=== PATIENT | female | born 1995 ===

== ENCOUNTER → 2016-12-13 | Day surgery (SDC) | payer OTHER ==
--- NOTE | 2016-12-12 20:53 | Pre-Procedure Note/Attestation ---
Pre-Procedure Note/Attestation Complete Prior to Procedure Planned Procedure: bilateral Procedure Narrative: 1. Bilateral endoscopic sinus surgery 2. Septoplasty 3. Bilateral submucous resection inferior turbinates Indications for Procedure Pre-Operative Diagnosis: 1. Chronic sinusitis-blocked OMUs 2. Septal deviation 3. Hypertrophied inferior turbinates Attestation I attest that I discussed the nature of the procedure; its benefits; risks and complications; and alternatives (and the risks and benefits of such alternatives ), prior to the procedure, with the patient (or the patient's legal passenger representative). I attest that, if there was a reasonable possibility of needing a blood transfusion, the patient (or the patient's legal passenger representative) was given the [place] Department [facility] [employer] [facility] standardized written summary, pursuant to the Hernando Pilar Blood Safety Act ([place] Health and Safety Code # 1645, as amended). I attest that I re-evaluated the patient just prior to the surgery and that there has been no change in the patient's H&P, job # [id number] LYNNE CORONADO Dec 12, 2016 20:53
[~2016-12-13] VITALS: Ht 162.6 cm; Wt 54.0 kg
[2016-12-13] VITALS (9 sets, daily range): BP systolic 120–140; BP diastolic 80–95
[~2016-12-13] MED LIST: ARNICA PO; Bupivacaine w/Epi 0.5% 30ml Vial INJ ONE; Cocaine 4% Vial TOPIC ONE; Dexamethasone 4mg/ml vial IVP ONE; Dexamethasone 4mg/ml vial ONE; DiphenhydrAMINE 50mg/ml Inj IVP PRN; HYDROmorphone 1mg/ml Carpuject SUBQ PRN; Hydromorphone 0.5mg/0.5ml inj IVP PRN; LR 1000ml 1,000 ML IVLG SCH; LR 1000ml ONE; Labetalol 5mg/ml 20ml vial IV PRN; Lidocaine 1% 10mg/ml/Epi 0.005mg/ml 30ml vial INJ ONE; Metoclopramide 10mg/2ml Inj IVP PRN; Metoclopramide 10mg/2ml Inj ONE; Midazolam 2mg/2ml Inj ONE; Muri-Lube ONE; NS Irrig 1000ml ONE; Norco 5mg/325mg tab ORAL PRN; Propofol 10mg/ml 20ml IV ONE; Saline Nasal Gel (Ayr) NASAL ONE; Sterile Water Irrig 1000ml IRRIG ONE; fentaNYL 100 mcg/2 mL IV ONE; fentaNYL 100 mcg/2 mL IV PRN
--- NOTE | 2016-12-13 04:38 | Pre-op HX & Phy Repo 2 SIG ---
DATE OF ADMISSION: 12/13/2016 INDICATION: The patient is a 21-year-old female who is having surgery for chronic sinusitis notable on CT scan blocked ostiomeatal unit bilaterally. She has been on many antibiotics, nasal steroids, and antihistamines without resolution. PAST MEDICAL HISTORY: Significant for nausea, cough, asthma, allergic rhinitis, recurrent chronic sinusitis. SOCIAL HISTORY: Single no children. She is a student at [employer]. Denies alcohol or drugs. FAMILY HISTORY: Cholesterol. PHYSICAL EXAMINATION: VITAL SIGNS: The patient is 5 feet 4 inches and 121 pounds. Blood pressure 120/80, pulse 68, respiratory rate 12, and BMI 20.77. HEENT: Head normocephalic. Eyes, PERRLA. EOMI. Lips, tongue, pharynx and neck normal. No septal deviation or hypertrophied turbinates. ABDOMEN: Soft and nontender. Normoactive bowel sounds. BREASTS: Not done it is not indicated for the surgery and is followed elsewhere. GENITOURINARY: Not done it is not indicated for the surgery and is followed elsewhere. NEUROLOGIC: Not done it is not indicated for the surgery and is followed elsewhere. EXTREMITIES: Normal. ALLERGIES: She has no known drug allergies. PAST SURGICAL HISTORY: [place] teeth without complications. MEDICATIONS: Amoxicillin, Astelin, Rhinocort, [place] for postop, and Dulera. LABORATORY AND DIAGNOSTIC DATA: CT scan indicates as noted above. ASSESSMENT: Chronic sinusitis candidate for septoplasty left inferior turbinates and this is bilateral endoscopic sinus surgery. PLAN: Plan has been discussed with the patient. She has been given printed instructions in my office as well as medications, amoxicillin and [place] that she was already on prior to surgery. She has signed consents in my office for my part . Thank you very much for asking my opinion in the care and treatment of this patient. Tristin Byrd M.D. DR: Trent JOB#: [id number] CC: SAVANNAH
--- NOTE | 2016-12-13 07:18 | Anethesia Preoperative Eval ---
Anesthesia Pre-op PMH/ROS General Date of Evaluation: Dec 13, 2016 Anesthesiologist: Eduar ASA Score: ASA 2 Mallampati Score Class I : Soft palate, uvula, fauces, pillars visible Class II: Soft palate, uvula, fauces visible Class III: Soft palate, base of uvula visible Class IV: Only hard plate visible Mallampati Classification: Class I Surgeon: Rochelle Diagnosis: Deviated septum, chronic sinusitis Surgical Procedure: SEptoplasty, SMR TURBS, endoscopic sinus sx Anesthesia History: none Family History: no anesthesia problems Allergies: Coded Allergies: No Known Allergies (Unverified , 12/12/16) Medications: see eMAR Past Medical History Cardiovascular: Denies: CAD, HTN, VT, arrhythmia, other, valve dz Pulmonary: Reports: asthma - as per patient, PFTs with evidence of decreasaed FEV1/FVC-about 70%, Denies: COPD, GIANNA, other Gastrointestinal/Genitourinary: Denies: CRI, ESRD, GERD, other Neurologic/Psychiatric: Denies: CVA, TIA, dementia, depression/anxiety, other Endocrine: Denies: DM, hypothyroidism, other, steroids HEENT: Reports: other - deviated septum with chronic sinusitis and post nasal drip, Denies: FALSE PASS (L), FALSE PASS (R), cataract (L), cataract (R), glaucoma Hematology/Immune: Denies: DVT, anemia, bleeding disorder, other Musculoskeletal/Integumentary: Denies: DDD, DJD, OA, RA, edema, other PSxH Narrative: Denies Anesthesia Pre-op Phys. Exam Physician Exam Last Vital Signs Date Time Temp Pulse Resp B/P Pulse Ox O2 Delivery O2 Flow Rate FiO2 12/13/16 06:20 97.9 92 20 128/80 99 Room Air Constitutional: NAD Cardiovascular: RRR Respiratory: CTA Airway Exam Mallampati Score: Class II MO: full ROM: full Anesthesia Pre-op A/P Labs see chart Urine Test Test 12/13/16 06:00 Urine HCG, Qualitative Negative Risk Assessment & Plan Assessment: ASA II Plan: GA Status Change Before Surgery: No Pre-Antibiotics Drug: Ancef 1g Given Within 1 Hr of Incision: Yes NICHELLE CADET M.D. Dec 13, 2016 07:18
--- NOTE | 2016-12-13 08:05 | Immediate Post-Op Evaluation ---
Immediate Post-Op Evalulation Immediate Post-Op Evalulation Procedure: Septoplasty, SMR TURBs, endoscopic sinus sx Date of Evaluation: Dec 13, 2016 Time of Evaluation: 08:44 IV Fluids: 1L Blood Products: 0 Estimated Blood Loss: 50 Urinary Output: 0 Blood Pressure Systolic: 124 Blood Pressure Diastolic: 69 Pulse Rate: 132 Respiratory Rate: 18 O2 Sat by Pulse Oximetry: 100 Temperature (Fahrenheit): 98.2 Pain Score (1-10): 0 Nausea: No Vomiting: No Complications 0 Patient Status: awake, reacts, patent, none Hydration Status: adequate Drug: Ancef 1g Given Within 1 Hr of Incision: Yes Time Given: 07:55 NICHELLE CADET M.D. Dec 13, 2016 08:05
--- NOTE | 2016-12-13 08:05 | 48 Hour Post Anesthesia Eval ---
Post Anesthesia Evaluation Procedure: Septoplasty, SMR TURBs, endoscopic sinus sx Date of Evaluation: Dec 13, 2016 Blood Pressure Systolic: 128 0: 74 Pulse Rate: 110 Respiratory Rate: 18 O2 Sat by Pulse Oximetry: 100 Airway: patent Nausea: No Vomiting: No Pain Intensity: 0 Hydration Status: adequate Cardiopulmonary Status: at baseline Mental Status/LOC: patient returned to baseline Post-Anesthesia Complications: 0 Follow-up care needed: ready to discharge NICHELLE CADET M.D. Dec 13, 2016 08:05
--- NOTE | 2016-12-13 08:37 | Brief Operative Note ---
Immediate Post Operative Note Operative Note Chief Complaint: Chroinc sinusitis, nasal airway obstruction Pre-op Diagnosis: 1. Chronic sinusitis-blocked OMUs 2. Septal deviation 3. Hypertrophied inferior turbinates Procedure: 1. Bilateral endoscopic sinus surgery 2. Septoplasty 3. Bilateral SMR inf. turbinates Post-op Diagnosis: same as pre-op Surgeon: Berenice Coronado Glass Block Bender: none Additional Surgeons: none Anesthesia: general Specimen: yes - 1. right max. sinus, 2 left max. sinus, 3. Complications: none Condition: stable Estimated Blood Loss: volume - 100cc Drains: none Packing: Stamberger nasal gel Implant(s) used?: No LYNNE CORONADO Dec 13, 2016 08:37
--- NOTE | 2016-12-13 08:43 | Discharge Instructions ---
Discharge Instructions Discharge Instructions Follow up with: Dr. Coronado next week-pt has appt. already Diet: regular Resume Normal Activity?: No Activity: light activity Pneumonia Vaccine: pt refused vaccine Influenza Vaccine (Jun to Nov): pt refused vaccine Follow Up Orders pt has printed instructions reviewed and given to pt in my office last week Return to Work/School on: January 24, 2017 Special Instructions ice to face x 48 hours For Surgical Patients Dressing Care: may change Contact your physician for: bleeding, pain, redness, swelling, yellowish discharge in the op. site For Congestive Heart Failure Reminder Report to your physician any weight gain of 5 pounds or more in one week. LYNNE CORONADO Dec 13, 2016 08:43
--- NOTE | 2016-12-13 10:38 | Operative Note - Dictated ---
DATE OF OPERATION: 12/13/2016 SURGEON: Tristin Byrd M.D. BROOMCORN GRADER: None. ANESTHESIOLOGIST: Dr. Chamorro. Anesthesia: LMA general anesthesia as well as 10 mL 1% lidocaine without epinephrine with Marcaine 0.5% with 1:200,000 epinephrine in 50:50 mixture. Additionally, 4 mL of 4% topical cocaine were placed on nasal pledgets bilaterally, 2 on either nostril. These were accounted for at the end of the case. INDICATION FOR SURGERY: The patient with recurrent sinusitis, who has been refractory to nasal steroids, antihistamines, allergy tests. Allergy desensitization was not successful and she has been on numerous rounds of antibiotics. CT scan indicated chronic sinus disease as well as blocked ostiomeatal units consistent with her symptoms. She also has septal deviation and hypertrophied turbinates on exam. PREOPERATIVE DIAGNOSES: The patient with recurrent sinusitis, who has been refractory to nasal steroids, antihistamines, allergy tests. Allergy desensitization was not successful and she has been on numerous rounds of antibiotics. CT scan indicated chronic sinus disease as well as blocked ostiomeatal units consistent with her symptoms. She also has septal deviation and hypertrophied turbinates on exam. POSTOPERATIVE DIAGNOSES: The patient with recurrent sinusitis, who has been refractory to nasal steroids, antihistamines, allergy tests. Allergy desensitization was not successful and she has been on numerous rounds of antibiotics. CT scan indicated chronic sinus disease as well as blocked ostiomeatal units consistent with her symptoms. She also has septal deviation and hypertrophied turbinates on exam. FINDINGS: The patient with recurrent sinusitis, who has been refractory to nasal steroids, antihistamines, allergy tests. Allergy desensitization was not successful and she has been on numerous rounds of antibiotics. CT scan indicated chronic sinus disease as well as blocked ostiomeatal units consistent with her symptoms. She also has septal deviation and hypertrophied turbinates on exam. Please note deviation was off to her left of her septum. PROCEDURES: 1. Bilateral endoscopic sinus disease. 2. Septoplasty. 3. Submucous resection, left inferior turbinate. 4. Submucous resection, right inferior turbinate. TECHNIQUE: The patient was prepped and draped in usual manner. Time-out was performed and all agreed as the equipment and procedures to be done. I then proceeded to inject the aforementioned lidocaine, Marcaine, and epinephrine mixture and place the 4 nasal pledgets with 4 mL of 4% topical cocaine. I then proceeded to remove the pledget on the left side making Alberto incision with a #15 blade in the septum. This was elevated with a dental elevator subperichondrially without difficulty. I then removed the lower 4 mm of the septum and fractured in the vomer. I used scissors to make an incision in the inferior part of the septum and then removed with a straight Gloria. I then closed this with a 4-0 plain suture. I then addressed the inferior turbinates. A small incision was made with #15 blade and then utilizing radiofrequency wand covered with saline with each stick, 2 sticks in either inferior turbinate for a count of 10 seconds at a setting of 6. They then were outfractured with a Downing elevator. I then used a rats tail to open up the nasal antral window underneath the inferior turbinate on either side and used the dental elevator to medialize the middle turbinate so as to have better vantage point of the ostiomeatal unit on the right and left. Starting on the right side, I cleaned out the right maxillary sinus with a Fede under endoscopic vision with a 30-degree scope and some with zero-scope. I then utilized a side biter and opened up the ostiomeatal unit on the right side. This was suctioned clean of further disease with same. Please note that aerobic and anaerobic culture was taken from the right maxillary sinus as well as a pathological specimen sent for evaluation. I then turned my attention to the left ostiomeatal unit. Rats tail was then utilized to open up the nasal antral window below the inferior turbinate and above the inferior turbinate. The middle turbinate was medialized with a dental elevator. I then identified the ostiomeatal unit and opened this up with a side biter. I was then able to with the scope through the nasal antral window see the side biter inside the maxillary sinus. The ostiomeatal unit was widened. From the left side, I took a pathologic specimen, but no culture. Both sides of the nostrils and maxillary sinus was suctioned, dried and 1 syringe of Stammberger nasal gel was utilized to control any bleeding and coat the inside of the nares bilaterally. Please note, 15 minutes later while in the recovery room, when she had been extubated in the operating room, she is comfortable. There is no additional bleeding in the original moustache dressing that was placed at the end of surgery. Sponge and needle count was correct, agreed by all in the room. ESTIMATED BLOOD LOSS: 100 mL. COMPLICATIONS: None. DRAINS: None. PACKING: Stammberger nasal gel. SPECIMENS: Right and left maxillary sinus, culture and sensitivity only from the right maxillary sinus. Vision was grossly normal in the postop recovery area. Tristin Byrd M.D. DR: Cornelio JOB#: [id number] CC: SAVANNAH
== END | disposition home or self-care (01) ==
LOC: SUR 05:46
DX: J32.0 Chronic maxillary sinusitis (principal); J34.2 Deviated nasal septum; J34.3 Hypertrophy of nasal turbinates; J45.909 Unspecified asthma, uncomplicated
CPT/HCPCS: 30140; 30520; 31267; 81025; 87070; 87075; 87205; J0690; J1100; J2250; J2405; J2704; J2765; J3010; J7120; 94003; 94150